=== PATIENT | female | born 1965 | race Caucasian/White ===

== ENCOUNTER 2019-12-14 12:21 | Inpatient (IN) | payer BC ==
[2019-12-14 12:40] VITALS: TEMP 98.1; BMI 30.7
--- NOTE | 2019-12-14 12:44 | PDOC ---
History of Present Illness - General Chief Complaint: Blood Pressure Problem Stated Complaint: HIGH BLOOD PRESSURE Time Seen by Provider: 12/14/19 12:44 History Source: Patient Exam Limitations: No Limitations, Clinical Condition - History of Present Illness Initial Comments: Brit Tavares is a 54 yo obese F w a hx of HTN, sleep apnea, anxiety and depression who presents to the [facility] in extreme distress, hyperventilating stating she feels like impending doom is imminent. She has a longstanding history of high blood pressure and recently had her BP med - valsartan doubled bc her HTN was not well controlled. She endorses a twitching sensation which began this past week and is very concerning for her. She also states she has been hearing crickets in the back of her head for which has been worked up extensively as an outpatient by ENT's with and MRI which showed no acute findings. The patient feels like she is short of breath and has a hard time taking a deep breath. She was recently diagnosed with advanced sleep apnea and told she experiences around 30 episodes a night of absent breathing s episodes so she was recently started on a nightly CPAP. Denies headache, back pain, chest pain, blurry vision, flank pain, fevers, chills, or infections. PCP: Dr. Justin Pulm: Dr. Woodruff Cardio: Dr. Weir Surgery: Dr. Boston evans PSH: Ventral hernia surgery Social Hx: Denies smoking, drinking, or other substance abuse Allergies: NKA, NKDA Past History - Past Medical History Allergies/Adverse Reactions: Allergies Allergy/AdvReac Type Severity Reaction Status Date / Time No Known Drug Allergies Allergy Verified 12/14/19 12:30 Home Medications: Ambulatory Orders Desvenlafaxine Succinate [Pristiq ER] 100 mg PO HS 07/06/16 Lamotrigine [Lamictal] 200 mg PO HS 07/06/16 Clonazepam 1 mg PO ASDIR 12/14/19 Quetiapine Fumarate [Seroquel -] 3 tab PO HS 12/14/19 Valsartan 160 mg PO DAILY 12/14/19 Anemia: No Asthma: No Cancer: No Cardiac Disorders: No CVA: No COPD: No CHF: No Dementia: No Diabetes: No GI Disorders: No Disorders: No HTN: Yes Hypercholesterolemia: No Liver Disease: No Seizures: No Thyroid Disease: No - Surgical History Cholecystectomy: Yes - Psycho Social/Smoking Cessation Hx Smoking History: Unknown if ever smoked Hx Alcohol Use: No Drug/Substance Use Hx: No Substance Use Type: Alcohol Review of Systems - Review of Systems Able to Perform ROS?: Yes Comments:: CONSTITUTIONAL: Absent: fever, no chills, no fatigue EYES: Absent: visual changes ENT: Absent: ear pain, no sore throat CARDIOVASCULAR: Present: Palpitations Absent: chest pain RESPIRATORY: Present: SOB Absent: cough GI: Absent: abdominal pain, no nausea, no vomiting, no constipation, no diarrhea GENITOURINARY: Absent: dysuria, no frequency, no hematuria MUSKULOSKELETAL: Absent: back pain, no arthralgia, no myalgia SKIN: Absent: rash NEURO: Absent: headache *Physical Exam - Vital Signs Last Vital Signs Temp Pulse Resp BP Pulse Ox 98.1 F 86 24 H 165/113 H 98 12/14/19 12:31 12/14/19 12:31 12/14/19 12:31 12/14/19 12:31 12/14/19 12:31 - Physical Exam BP: LEFT - 176/97 RIGHT - 170/107 GENERAL: Patient is panicking and hyperventilating. Appears extremely nervous. Moderate distress. HEENT: Normocephalic, atraumatic. PERRL, EOM intact. CARDIOVASCULAR: Normal S1, S2. Regular rate and rhythm. PULMONARY: No evidence of respiratory distress. Lungs clear to auscultation bilaterally. No wheezing, rales or rhonchi. ABDOMEN: Soft, non-distended, non-tender. EXTREMITIES: Normal ROM in all four extremities. No gross deformities. SKIN: Warm, dry. No rash NEUROLOGICAL: No focal neurological deficits. ED Treatment Course - LABORATORY CBC & Chemistry Diagram: 12/14/19 13:20 12/14/19 13:20 Medical Decision Making - Medical Decision Making Brit Tavares is a 54 yo obese F w a hx of HTN, sleep apnea, anxiety and depression who presents to the [facility] in extreme distress, hyperventilating stating she feels like impending doom is imminent. She has a longstanding history of high blood pressure and recently had her BP med - valsartan doubled bc her HTN was not well controlled. She endorses a twitching sensation which began this past week and is very concerning for her. She also states she has been hearing crickets in the back of her head for which has been worked up extensively as an outpatient by ENT's with and MRI which showed no acute findings. The patient feels like she is short of breath and has a hard time taking a deep breath. She was recently diagnosed with advanced sleep apnea and told she experiences around 30 episodes a night of absent breathing s episodes so she was recently started on a nightly CPAP. Vital Signs Temp Pulse Resp BP Pulse Ox 98.1 F 86 24 H 165/113 H 98 12/14/19 12:31 12/14/19 12:31 12/14/19 12:31 12/14/19 12:31 12/14/19 12:31 DDx IBNLT: ACS, panic attack, hypertensive urgency vs emergency, electrolyte/ metabolic disturbance, end organ damage, arrythmia, brain bleed Plan: Labs, EKG, CXR, head CT, neuro-consult, re-assess. EKG: NS rate of 91 narrow complexes, normal axis, no hypertrophy, QTc 445, W[place] 148, no ST elevations or depressions, no Q waves, no hyperacute T-waves Head CT: No acute pathology Labs + Urine + Tox: Unremarkable Neuro Consult: Dr. Luque - came and evaluated the patient in the ER. Recommends a repeat brain MRI and an EEG to evaluate this new twitching which is concerning to the patient and . The at bedside confirms this new right arm twitching is abnormal and he is also concerned with this. Dispo: Med/surg for brain MRI, EEG, Neuro and psyche consults Discharge - Discharge Information Problems reviewed: Yes Clinical Impression/Diagnosis: Twitching Hypertension Qualifiers: Hypertension type: unspecified Qualified Code(s): I10 - Essential (primary) hypertension Condition: Stable - Admission Yes - Follow up/Referral Referrals: Paco Justin MD [Primary Care Provider] - - Patient Discharge Instructions - Post Discharge Activity
--- NOTE | 2019-12-14 13:24 | PDOC ---
Attending Attestation - Resident Resident Name: Kishore Garcia - ED Attending Attestation I have performed the following: I have examined & evaluated the patient, The case was reviewed & discussed with the resident, I agree w/resident's findings & plan, Exceptions are as noted - HPI HPI: 12/14/19 13:18 54yo female presents for eval of twitching and sob that started while she was showering. Pt had an increased dose of valsartan since wednesday - now on 160mg. Pt arrives tachypnic, hyperventilating, twitching, sob. Pt with conversational dyspnea upon arrival. Pt denies cp. Pt denies f/c. Pt denies abd pain. c/o intermittent nausea. Pt denies LE swelling, but states hands and feet are cramping. Pt states "crickets in her head" since september, had MRI that was "normal" at [facility]. Pt with involuntary twitching upon arrival. - Physicial Exam PE: 12/14/19 13:33 Gen: aaox3, tachypnic/hyperventilating heart: +s1s2 reg lungs: cta b/l abd: soft, nt/nd +bs, upper abd incision is well healed, prior hernia surgery healed ext: no c/c/e neuro: cn ii-xii grossly normal, muscle strength 5/5 UE and LE, involuntary UE and LE twitching with head twitching, sensation intact, pulses intact, neg asterixis - Medical Decision Making 12/14/19 13:35 a/p: 54yo female with twitching, tachypnea, hyperventilating, pins and needles to b/l hands since being in the shower -no trauma -increased dose of valsartan since wednesday, no changes in psych meds x 11 years -pt with conversational dyspnea -elevated bp at home despite increasing dose of bp meds since wednesday -will send labs, ekg, cxr, head ct, mag, caclium -no asterixis -will place on panel monitor -will reassess -will place on nrb 12/14/19 15:47 labs reviewed no acute findings on head ct pt has been seen by dr. centeno recommends psych eval as well microblog sent for admission for twitching and spasms of her muscles 12/14/19 17:16 pt has been admitted to [facility] for further evaluation Heart Score/ECG Review - ECG Intrepretation Comment:: 12/14/19 13:39 sinus at 91, nl axis, nl interval, no acute st/t wave findings
[2019-12-14 14:32] LABS: BASO % 0.4 % (0-2.0); EOS % 1.1 % (0-4.5); HEMATOCRIT 40.7 % (32.4-45.2); HEMOGLOBIN 13.7 GM/dL (10.7-15.3); LYMPH % 50.9 % (8-40); MCH 30.1 pg (25.7-33.7); MCHC 33.7 g/dl (32.0-36.0); MEAN CELL VOLUME 89.2 fl (80-96); MONO % 7.1 % (3.8-10.2); NEUT % 40.5 % (42.8-82.8); PLATELET COUNT 315 K/MM3 (134-434); RBC 4.57 M/mm3 (3.60-5.2); RDW 13.7 % (11.6-15.6); WHITE BLOOD COUNT 6.6 K/mm3 (4.0-10.0)
[2019-12-14 14:35] LABS: PH,URINE 7.5 (5.0-8.0); URINE APPEARANCE CLEAR; URINE BILIRUBIN NEGATIVE (NEGATIVE); URINE COLOR YELLOW; URINE GLUCOSE (UA) NEGATIVE (NEGATIVE); URINE KETONE NEGATIVE (NEGATIVE); URINE LEUK ESTERASE NEGATIVE (NEGATIVE); URINE NITRITE NEGATIVE (NEGATIVE); URINE PROTEIN NEGATIVE (NEGATIVE); URINE UROBILINOGEN 0.2 mg/dL (0.2-1.0)
[2019-12-14 14:55] LABS: COCAINE, UR NEGATIVE ng/ml (CUTOFF=300); METHADONE, UR NEGATIVE ng/ml (CUTOFF=300); OPIATES, URI NEGATIVE ng/ml (CUTOFF=300); PHENCYCLIDINE,URINE NEGATIVE ng/ml (CUTOFF=25); URINE AMPHETAMINES NEGATIVE ng/ml (CUTOFF=500); URINE BARBITURATES NEGATIVE ng/ml (CUTOFF=200); URINE BENZODIAZEPINES NEGATIVE ng/ml (CUTOFF=200)
[2019-12-14 15:14] LABS: ALBUMIN 4.1 g/dl (3.4-5.0); ALK PHOS 108 U/L (45-117); ANION GAP 7 MMOL/L (8-16); BILIRUBIN,TOTAL 0.4 mg/dL (0.2-1); BLOOD UREA NITROGEN 15.9 mg/dL (7-18); CALCIUM 9.2 mg/dL (8.5-10.1); CHLORIDE 105 mmol/L (98-107); CO2 27 mmol/L (21-32); GLUCOSE,RANDOM 100 mg/dL (74-106); MAGNESIUM 2.3 mg/dL (1.8-2.4); POTASSIUM 3.7 mmol/L (3.5-5.1); SGOT/AST 16 U/L (15-37); SGPT/ALT 32 U/L (13-61); SODIUM 138 mmol/L (136-145)
--- NOTE | 2019-12-14 15:59 | CON.NEURO ---
Consult - Alcohol/Substance Use Hx Alcohol Use: No - Smoking History Smoking history: Unknown if ever smoked Home Medications - Allergies Allergies/Adverse Reactions: Allergies Allergy/AdvReac Type Severity Reaction Status Date / Time No Known Drug Allergies Allergy Verified 12/14/19 12:30 - Home Medications Home Medications: Ambulatory Orders Desvenlafaxine Succinate [Pristiq ER] 100 mg PO HS 07/06/16 Lamotrigine [Lamictal] 200 mg PO HS 07/06/16 Clonazepam 1 mg PO ASDIR 12/14/19 Quetiapine Fumarate [Seroquel -] 3 tab PO HS 12/14/19 Valsartan 160 mg PO DAILY 12/14/19 Physical Exam-Neuro Vital Signs: Vital Signs Temperature 98.1 F 12/14/19 12:31 Pulse Rate 86 12/14/19 12:31 Respiratory Rate 24 H 12/14/19 12:31 Blood Pressure 165/113 H 12/14/19 12:31 O2 Sat by Pulse Oximetry (%) 98 12/14/19 12:31 Labs: CBC, BMP 12/14/19 13:20 12/14/19 13:20 Assessment/Plan CC Abnormal jerky motion HPI 54 year old female history of htn, sleep apnea, anxiety and depression. She came to hospital for uncontrolled hypertension and she has hyperventilation and feel anxiety. She was seen with resident and her at bedside. Patient describes as atypical jerking motion of right, which is quite atypical and she seems ot be holding her breadth . She feels it is twtiching senstio nand it jennings sbene happening for one week, she did also have of brain as she was hearing some cricket sound . Her brain mri wa snormal. Patient denies any loc, seizure like activity or tongue bite. Past History - Past Medical History Allergies/Adverse Reactions: Allergies Allergy/AdvReac Type Severity Reaction Status Date / Time No Known Drug Allergies Allergy Verified 12/14/19 12:30 Home Medications: Ambulatory Orders Desvenlafaxine Succinate [Pristiq ER] 100 mg PO HS 07/06/16 Lamotrigine [Lamictal] 200 mg PO HS 07/06/16 Clonazepam 1 mg PO ASDIR 12/14/19 Quetiapine Fumarate [Seroquel -] 3 tab PO HS 12/14/19 Valsartan 160 mg PO DAILY 12/14/19 ROS,FH Reviewed in chart NEUROLOGICAL EXAMINATION Alert oriented x 3, neck is supple afebrile eomi, pupils ractive no face asymmetry moving all ext sensation is normal reflex si grade 2 ct head unremarkbale Assessment/Plan 54 year old female history of htn, sleep apnea, anxiety and depression, she has been having atypical twitching and abnormal motion of shoulder and jumping of right arm above her head. Ct head normal, recnet mri of brain is normal and normal neuro exam. Unlikley to focal seizure, likley to be anxiety related. Plan: Patient was reassured that no need to admit if symptoms persists, she may need video/eeg , mri of brain - advice to watch and take vide follow up with psych Thanking you so much Dhruv Posadas MD
--- NOTE | 2019-12-14 16:11 | EKG ---
Test Reason : Blood Pressure : / mmHG Vent. Rate : 091 BPM Atrial Rate : 091 BPM P-R Int : 148 ms QRS Dur : 074 ms QT Int : 362 ms P-R-T Axes : 051 006 004 degrees QTc Int : 445 ms POOR DATA QUALITY, INTERPRETATION MAY BE ADVERSELY AFFECTED NORMAL SINUS RHYTHM CANNOT RULE OUT ANTERIOR INFARCT , AGE UNDETERMINED ABNORMAL ECG WHEN COMPARED WITH ECG OF 01-NOV-2019 13:33, NO SIGNIFICANT CHANGE WAS FOUND Confirmed by CAROLIN BELL MD ([id number]) on 12/14/2019 4:10:31 PM Referred By: Confirmed By:CAROLIN BELL MD
--- NOTE | 2019-12-14 16:20 | HP ---
CHIEF COMPLAINT: twitching HISTORY OF PRESENT ILLNESS: 54 year old female with a history of anxiety, sleep apnea, depression, hypertension, came to the hospital for severe anxiety and hyperventilation earlier today. Recently had valsartan dose doubled. States that she has had a feeling of crickets in her ears. Had a recent MRI 2 weeks ago which was reportedly normal. During this attack of anxiety, she reports that her arms began twitching extensively, more in her right than her left. She started a CPAP machine in July for VALERI (~30 apnea/hypopnea episodes). Reports that her twitching has mostly subsided, but is anxious that this has not happened before. Denies headache, blurry vision, double vision, weakness, paresthesias, chest pain, nausea, vomiting, diarrhea, fevers, chills. ER course was notable for: (1) Head CT negative (2) EKG reviewed (3) Recent Travel: denies Social History: Smoking: for 2 months in the past Alcohol: social Drugs: denies Allergies Surgeries: cholecystectomy, hernia repair, sinus surgery No Known Drug Allergies Allergy (Verified 12/14/19 12:30) HOME MEDICATIONS: Home Medications Medication Instructions Recorded Desvenlafaxine Succinate [Pristiq 100 mg PO HS 07/06/16 ER] Lamotrigine [Lamictal] 200 mg PO HS 07/06/16 Clonazepam 1 mg PO ASDIR 12/14/19 Quetiapine Fumarate [Seroquel -] 3 tab PO HS 12/14/19 Valsartan 160 mg PO DAILY 12/14/19 REVIEW OF SYSTEMS CONSTITUTIONAL: Absent: fever, chills, diaphoresis, generalized weakness, malaise, loss of appetite, weight change HEENT: Absent: rhinorrhea, nasal congestion, throat pain, throat swelling, difficulty swallowing, mouth swelling, ear pain, eye pain, visual changes CARDIOVASCULAR: Absent: chest pain, syncope, palpitations, irregular heart rate, lightheadedness , peripheral edema RESPIRATORY: Absent: cough, shortness of breath, dyspnea with exertion, orthopnea, wheezing, stridor, hemoptysis GASTROINTESTINAL: Absent: abdominal pain, abdominal distension, nausea, vomiting, diarrhea, constipation, melena, hematochezia GENITOURINARY: Absent: dysuria, frequency, urgency, hesitancy, hematuria, flank pain, genital pain MUSCULOSKELETAL: Absent: myalgia, arthralgia, joint swelling, back pain, neck pain SKIN: Absent: rash, itching, pallor HEMATOLOGIC/IMMUNOLOGIC: Absent: easy bleeding, easy bruising, lymphadenopathy, frequent infections ENDOCRINE: Absent: unexplained weight gain, unexplained weight loss, heat intolerance, cold intolerance NEUROLOGIC: Absent: headache, focal weakness or paresthesias, dizziness, unsteady gait, seizure, mental status changes, bladder or bowel incontinence PSYCHIATRIC: anxiety, depression Absent: suicidal or homicidal ideation, hallucinations PHYSICAL EXAMINATION Vital Signs - 24 hr 12/14/19 12:31 Temperature 98.1 F Pulse Rate 86 Respiratory 24 H Rate Blood Pressure 165/113 H O2 Sat by Pulse 98 Oximetry (%) GENERAL: Awake, alert, and fully oriented, in no acute distress. HEAD: Normal with no signs of trauma. EYES: Pupils equal, round and reactive to light, extraocular movements intact, sclera anicteric, conjunctiva clear. No lid lag. EARS, NOSE, THROAT: Ears normal, nares patent, oropharynx clear without exudates. Moist mucous membranes. NECK: Normal range of motion, supple without lymphadenopathy, JVD, or masses. LUNGS: Breath sounds equal, clear to auscultation bilaterally. No wheezes, and no crackles. No accessory muscle use. HEART: Regular rate and rhythm, normal S1 and S2 without murmur, rub or gallop. ABDOMEN: Morbidly Obese, Soft, nontender, not distended, normoactive bowel sounds, no guarding, no rebound, no masses. No hepatomegaly or splenomegaly. MUSCULOSKELETAL: Normal range of motion at all joints. No bony deformities or tenderness. No CVA tenderness. UPPER EXTREMITIES: 2+ pulses, warm, well-perfused. No cyanosis. No clubbing. No peripheral edema. LOWER EXTREMITIES: 2+ pulses, warm, well-perfused. No calf tenderness. No peripheral edema. NEUROLOGICAL: Cranial nerves II-XII intact. Normal speech. Normal gait. PSYCHIATRIC: Cooperative. Good eye contact. Appropriate mood and affect. SKIN: Warm, dry, normal turgor, no rashes or lesions noted, normal capillary refill. Laboratory Results - last 24 hr 12/14/19 12/14/19 12/14/19 13:20 13:20 13:20 WBC 6.6 RBC 4.57 Hgb 13.7 Hct 40.7 MCV 89.2 MCH 30.1 MCHC 33.7 RDW 13.7 Plt Count 315 MPV 9.0 Absolute Neuts (auto) 2.7 Neutrophils % 40.5 L Lymphocytes % 50.9 H Monocytes % 7.1 Eosinophils % 1.1 Basophils % 0.4 Nucleated RBC % 0 Sodium 138 Potassium 3.7 Chloride 105 Carbon Dioxide 27 Anion Gap 7 L BUN 15.9 Creatinine 1.0 Est GFR (CKD-EPI)AfAm 73.45 Est GFR (CKD-EPI)NonAf 63.37 Random Glucose 100 Calcium 9.2 Magnesium 2.3 Total Bilirubin 0.4 AST 16 ALT 32 Alkaline Phosphatase 108 Creatine Kinase 115 Troponin I < 0.02 Total Protein 8.0 Albumin 4.1 TSH 1.79 Urine Color Yellow Urine Appearance Clear Urine pH 7.5 Ur Specific [place] 1.010 Urine Protein Negative Urine Glucose (UA) Negative Urine Ketones Negative Urine Blood Negative Urine Nitrite Negative Urine Bilirubin Negative Urine Urobilinogen 0.2 Ur Leukocyte Esterase Negative Opiates Screen Methadone Screen Barbiturate Screen Phencyclidine Screen Ur Amphetamines Screen MDMA (Ecstasy) Screen Benzodiazepines Screen Cocaine Screen U Marijuana (THC) Screen 12/14/19 13:20 WBC RBC Hgb Hct MCV MCH MCHC RDW Plt Count MPV Absolute Neuts (auto) Neutrophils % Lymphocytes % Monocytes % Eosinophils % Basophils % Nucleated RBC % Sodium Potassium Chloride Carbon Dioxide Anion Gap BUN Creatinine Est GFR (CKD-EPI)AfAm Est GFR (CKD-EPI)NonAf Random Glucose Calcium Magnesium Total Bilirubin AST ALT Alkaline Phosphatase Creatine Kinase Troponin I Total Protein Albumin TSH Urine Color Urine Appearance Urine pH Ur Specific [place] Urine Protein Urine Glucose (UA) Urine Ketones Urine Blood Urine Nitrite Urine Bilirubin Urine Urobilinogen Ur Leukocyte Esterase Opiates Screen Negative Methadone Screen Negative Barbiturate Screen Negative Phencyclidine Screen Negative Ur Amphetamines Screen Negative MDMA (Ecstasy) Screen Negative Benzodiazepines Screen Negative Cocaine Screen Negative U Marijuana (THC) Screen Negative ASSESSMENT/PLAN: 54 year old female with a history of anxiety, sleep apnea, depression, hypertension, came to the hospital for severe anxiety and hyperventilation earlier today. #Myoclonic Jerks: could potentially be anxiety related, patient is not twitching on my exam and has improved -spoke to Dr. Luque, as patient had recent MRI that was negative, CT normal here with normal labwork, could get MRI and EEG as outpatient -patient would like to go home and get evaluated by outpatient -would need to see psychiatrist as outpatient to discuss her psychiatric medications, as they could be contributing to her hearing crickets - not an inpatient evaluation -discussed disposition extensively with the patient and her #Hypertension: initially hypertensive here >160/110, repeat 130s/80s -continue home medications #Disposition: -discharge today Visit type - Emergency Visit Emergency Visit: Yes ED Registration Date: 12/14/19 Care time: The patient presented to the Emergency Department on the above date and was hospitalized for further evaluation of their emergent condition. - New Patient This patient is new to me today: Yes Date on this admission: 12/14/19 - Critical Care Critical Care patient: No ATTENDING PHYSICIAN STATEMENT I saw and evaluated the patient. I reviewed the resident's note and discussed the case with the resident. I agree with the resident's findings and plan as documented. SUBJECTIVE: OBJECTIVE: ASSESSMENT AND PLAN:
--- NOTE | 2019-12-14 17:15 | DS ---
Physical Exam: HOSPITAL COURSE: Date of Admission: 12/14/19 HPI From admission: 54 year old female with a history of anxiety, sleep apnea, depression, hypertension, came to the hospital for severe anxiety and hyperventilation earlier today. Recently had valsartan dose doubled. States that she has had a feeling of crickets in her ears. Had a recent MRI 2 weeks ago which was reportedly normal. During this attack of anxiety, she reports that her arms began twitching extensively, more in her right than her left. She started a CPAP machine in July for VALERI (~30 apnea/hypopnea episodes). Reports that her twitching has mostly subsided, but is anxious that this has not happened before. Denies headache, blurry vision, double vision, weakness, paresthesias, chest pain, nausea, vomiting, diarrhea, fevers, chills. CT head, EKG, labwork were all normal. Patient had completely improved at time admitting team saw the patient. Blood pressure normalized and patient was not having anymore myoclonic jerks. Discussed with patient to follow with Dr. Torres for MRI and EEG. Discussed with patient to see psychiatry as an outpatient to discuss psychotropic medications. Date of Discharge: 12/14/19 Minutes to complete discharge: 35 Discharge Summary Problems reviewed: Yes Reason For Visit: SPASMODIC MOVEMENT Current Active Problems Hypertension (Acute) Twitching (Acute) Condition: Improved - Instructions Diet, Activity, Other Instructions: You were admitted to the hospital for the management and evaluation of high blood pressure and twitching, which are likely related to myoclonic jerks Your CAT scan was found to be normal without any pathologic findings Your blood pressure had improved during your stay in the emergency room Medical Recommendations: -Please make an appointment with the Neurologist, Dr. Torres, within 1-2 weeks of discharge for evaluation of the twitching, with outpatient MRI and EEG evaluation -Please make an appointment with your psychiatrist to discuss your symptoms and medications that you are taking -Please make an appointment with Dr. Justin, your primary care physician, within 1 week of discharge -The phone number for the neurologist is provided in your discharge packet -Please continue to take your home medications as prescribed, until evaluated by your primary care physician and psychiatrist If you start to experience worsening symptoms, please report to the emergency room immediately Referrals: Paco Justin MD [Primary Care Provider] - Gianni Torres DO [Staff Physician] - 2 Weeks Disposition: HOME - Home Medications Comprehensive Discharge Medication List: Ambulatory Orders Desvenlafaxine Succinate [Pristiq] 100 mg PO HS 07/06/16 Lamotrigine [Lamictal] 200 mg PO HS 07/06/16 Clonazepam 1 mg PO ASDIR 12/14/19 Quetiapine Fumarate [Seroquel -] 3 tab PO HS 12/14/19 Valsartan 160 mg PO DAILY 12/14/19 This patient is new to me today: Yes Date on this admission: 12/14/19 Emergency Visit: Yes ED Registration Date: 12/14/19 Care time: The patient presented to the Emergency Department on the above date and was hospitalized for further evaluation of their emergent condition. Critical Care patient: No - Discharge Referral Referred to [facility] Med [facility].C.: No ATTENDING PHYSICIAN STATEMENT I saw and evaluated the patient. I reviewed the resident's note and discussed the case with the resident. I agree with the resident's findings and plan as documented. SUBJECTIVE: OBJECTIVE: ASSESSMENT AND PLAN:
[2019-12-14 17:53] VITALS: BP 150/94; PULSE 82
--- NOTE | 2019-12-14 18:10 | PN ---
Teaching Attending Note Name of Resident: Juan Alberto Kaur ATTENDING PHYSICIAN STATEMENT I saw and evaluated the patient. I reviewed the resident's note and discussed the case with the resident. I agree with the resident's findings and plan as documented. SUBJECTIVE: Twitches resolved. No LOC. No headache/visual disturbance/limb numbness or weakness. OBJECTIVE: Afebrile, Hemodynamically Stable. Last Vital Signs Temp Pulse Resp BP Pulse Ox 98.1 F 84 24 H 133/83 98 12/14/19 12:31 12/14/19 16:36 12/14/19 12:31 12/14/19 16:36 12/14/19 16:36 HEENT - Atraumatic, normocephalic. Heart - S1, S2, RRR Lungs - clear to auscultation Abdomen - Soft, non-tender. Bowel Sounds normal. Extremities - no edema, no calf tenderness. Neuro - AAO x 3. EDER. Tone/Power normal all extremities. No myoclonus or jerks. Laboratory Results - last 24 hr 12/14/19 12/14/19 12/14/19 13:20 13:20 13:20 WBC 6.6 RBC 4.57 Hgb 13.7 Hct 40.7 MCV 89.2 MCH 30.1 MCHC 33.7 RDW 13.7 Plt Count 315 MPV 9.0 Absolute Neuts (auto) 2.7 Neutrophils % 40.5 L Lymphocytes % 50.9 H Monocytes % 7.1 Eosinophils % 1.1 Basophils % 0.4 Nucleated RBC % 0 Sodium 138 Potassium 3.7 Chloride 105 Carbon Dioxide 27 Anion Gap 7 L BUN 15.9 Creatinine 1.0 Est GFR (CKD-EPI)AfAm 73.45 Est GFR (CKD-EPI)NonAf 63.37 Random Glucose 100 Calcium 9.2 Magnesium 2.3 Total Bilirubin 0.4 AST 16 ALT 32 Alkaline Phosphatase 108 Creatine Kinase 115 Troponin I < 0.02 Total Protein 8.0 Albumin 4.1 TSH 1.79 Urine Color Yellow Urine Appearance Clear Urine pH 7.5 Ur Specific [place] 1.010 Urine Protein Negative Urine Glucose (UA) Negative Urine Ketones Negative Urine Blood Negative Urine Nitrite Negative Urine Bilirubin Negative Urine Urobilinogen 0.2 Ur Leukocyte Esterase Negative Opiates Screen Methadone Screen Barbiturate Screen Phencyclidine Screen Ur Amphetamines Screen MDMA (Ecstasy) Screen Benzodiazepines Screen Cocaine Screen U Marijuana (THC) Screen 12/14/19 13:20 WBC RBC Hgb Hct MCV MCH MCHC RDW Plt Count MPV Absolute Neuts (auto) Neutrophils % Lymphocytes % Monocytes % Eosinophils % Basophils % Nucleated RBC % Sodium Potassium Chloride Carbon Dioxide Anion Gap BUN Creatinine Est GFR (CKD-EPI)AfAm Est GFR (CKD-EPI)NonAf Random Glucose Calcium Magnesium Total Bilirubin AST ALT Alkaline Phosphatase Creatine Kinase Troponin I Total Protein Albumin TSH Urine Color Urine Appearance Urine pH Ur Specific [place] Urine Protein Urine Glucose (UA) Urine Ketones Urine Blood Urine Nitrite Urine Bilirubin Urine Urobilinogen Ur Leukocyte Esterase Opiates Screen Negative Methadone Screen Negative Barbiturate Screen Negative Phencyclidine Screen Negative Ur Amphetamines Screen Negative MDMA (Ecstasy) Screen Negative Benzodiazepines Screen Negative Cocaine Screen Negative U Marijuana (THC) Screen Negative Home Medications Medication Instructions Recorded Desvenlafaxine Succinate [Pristiq] 100 mg PO HS 07/06/16 Lamotrigine [Lamictal] 200 mg PO HS 07/06/16 Clonazepam 1 mg PO ASDIR 12/14/19 Quetiapine Fumarate [Seroquel -] 3 tab PO HS 12/14/19 Valsartan 160 mg PO DAILY 12/14/19 ASSESSMENT/PLAN: 54 year old female with history of Anxiety/Depression (on multiple medications) , HTN, VALERI, presented with hyperventilation, anxiety, reported twitching LUE. No LOC. No visual disturbance/limb numbness or weakness. She follows with out- patient Psychiatry and had a recent MRI for ?tinnitus, which was negative. Her symptoms resolved spontaneously in the ED. CT head showed no acute findings. Labs were within normal limits. Neurology evaluated and recommended discharge with out-patient psychiatry follow up. Neurology also recommends possible video EEG +/- repeat MRI as out-patient (resident spoke with Dr. Luque directly). It is most likely that the patient had an anxiety attack, which resolved spontaneously. All psychiatry medications were resumed on discharge. BP normalized on resolution of panic attack. Home med Valsartan resumed on discharge. She is medically and neurologically stable for discharge with Neurology and Psychiatry follow ups.
== END 2019-12-14 17:54 | disposition home or self-care (01) | DRG 93 ==
LOC: JER 12:21 → JERBED 15:46
DX: R25.3 Fasciculation (principal); I10 Essential (primary) hypertension; F41.8 Other specified anxiety disorders; G47.30 Sleep apnea, unspecified; R06.4 Hyperventilation
CPT/HCPCS: 36415; 70450-TC; 71046-TC-FY; 80053; 80307; 81003; 82550; 83735; 84443; 84484; 85025; 93005; 93010; 99285-25